=== PATIENT | male | born 1990 | race Two or more races ===

== ENCOUNTER 2021-12-07 12:35 | Emergency (ER) | payer MEDICAID ==
[~2021-12-07] VITALS: Ht 180.3 cm; Wt 129.6 kg
[2021-12-07 12:36] VITALS: BP 142/87
== END 2021-12-07 13:19 ==
LOC: EMS 12:37
DX: R06.02 Shortness of breath (principal); F41.9 Anxiety disorder, unspecified; J45.909 Unspecified asthma, uncomplicated; Z91.013 Allergy to seafood
CPT/HCPCS: 99283